=== PATIENT | male | born 1980 | race African-American/Black ===

== ENCOUNTER 2020-06-10 08:49 | Inpatient (IN) ==
--- NOTE | 2020-06-09 08:52 | Anesthesiology Consultation ---
Date of Service June 09, 2020 Assessment & Plan (1) Encounter for pre-operative examination: Patient is an inmate at [facility]. No current + cases at facility. Per wind turbine mechanic 06/06, [facility] staff report they will be COVID testing the patient AM DOS. Chart Review Chart Review: Acceptable Risk for Surgery and Patient NOT seen in Pre Admission Testing History Surgery Operation Date: 06/10/20 08:50 Proposed Procedures p Right Index Finger Hardware Removal, - Teja Church MD s Irrigation and Debridement - Teja Church MD Height/Weight Height: 6 ft 1 in Weight: 86.183 kg Allergies Allergy/AdvReac Type Severity Reaction Status Date / Time pollen extracts Allergy Verified 06/06/20 15:24 DUST Allergy Uncoded 06/06/20 15:24 Medications Home Medications Medication Instructions Recorded Confirmed Last Taken acetaminophen 1,000 mg PO BID 06/06/20 06/06/20 Unknown diphenhydramine HCl [Diphenedryl] 75 mg PO HS 06/06/20 06/06/20 Unknown fluoxetine 20 mg PO QAM 06/06/20 06/06/20 Unknown sulfamethoxazole-trimethoprim 1 tab PO BID 06/06/20 06/06/20 Unknown [Sulfatrim DS] Past Medical History Medical History Abnormal EKG Chronic prostatitis Depression Eye disorder Inmate in correctional facility Seasonal allergies Social History Smoking Status: Unknown if ever smoked Testing Laboratory Results 05/28/20 WBC: 7.36 H/H: 15.1/45.5 PLATELETS: 254
[~2020-06-10 08:49] MED LIST: CEFAZOLIN 2000MG 2,000 MG/15 ML SYR IV SCH; LACTATED RINGER'S 1,000 ML IV SCH; LR 15ML/HR IV SCH
[2020-06-10] MEDS ORDERED: LIDOCAINE HCL 2% 2 ML VIAL/AMP(20MG/ML) INFIL ONE (12:35)
[2020-06-10] MEDS ORDERED: ONDANSETRON INJ 2 MG/ML 2 ML VIAL ONE (12:35)
[2020-06-10] MEDS ORDERED: PROPOFOL IV EMULSION 10 MG/ML 20 ML VIAL IV ONE (12:35)
[2020-06-10] MEDS ORDERED: MIDAZOLAM HCL 1 MG/ML 2ML VIAL ONE (12:36)
[2020-06-10] MEDS ORDERED: fentaNYL citrate 100 MCG/2 ML VIAL ONE ×2 (12:36→15:25)
--- NOTE | 2020-06-10 13:01 | History & Physical Bridge Note ---
Date of Service June 10, 2020 History & Physical Bridge Note I have examined the patient, reviewed the History & Physical and in the interval since the performance of the History & Physical I have noted the following changes of clinical significance: no changes noted
[2020-06-10] MEDS ORDERED: VANCOMYCIN HCL 1000MG/20ML VIAL ONE (13:28)
[2020-06-10] MEDS ORDERED: GENTAMICIN SULFATE 40 MG/ML 2 ML VIAL ONE (13:28)
[2020-06-10] MEDS ORDERED: BACITRACIN INJ 50,000 UNIT VIAL ONE (13:29)
[2020-06-10] MEDS ORDERED: HYDROmorphone INJ 2 MG/ML SYR/VIAL IV PRN (13:43)
[2020-06-10] MEDS ORDERED: PROMETHAZINE HCL 12.5 MG in SODIUM CHLORIDE 0.9% 50 ML IV PRN (13:43)
[2020-06-10] MEDS ORDERED: ATROPINE SULFATE 0.1 MG/ML 10ML SYR IV PRN (13:43)
[2020-06-10] MEDS ORDERED: ePHEDrine sulfate 50 MG/ML AMP IV PRN (13:43)
[2020-06-10] MEDS ORDERED: ONDANSETRON INJ 2 MG/ML 2 ML VIAL IV PRN ×2 (13:43→17:29)
[2020-06-10] MEDS ORDERED: fentaNYL citrate 100 MCG/2 ML VIAL IV PRN (13:43)
[2020-06-10] MEDS ORDERED: METOCLOPRAMIDE HCL INJ 5 MG/ML 2 ML VIAL IV PRN ×2 (13:43→17:29)
[2020-06-10] MEDS: BUPIVACAINE 0.5 % 5 MG/1 ML MPF 30ML VIAL ONE ×2 (15:38→15:42)
[2020-06-10] MEDS: LIDOCAINE HCL 1% 20 ML VIAL ONE ×2 (15:38→15:42)
--- NOTE | 2020-06-10 15:39 | Operative Report ---
Post Operative Report Pre & Post Diagnosis Operation Date: 06/10/20 10:40 Pre-Op Diagnosis: Right Index Finger Infection with Loose Hardware Post-Op Diagnosis: Right Index Finger Infection with Loose Hardware I identified the patient and participated in the time-out.: Yes Procedure Operation Date: 06/10/20 10:40 Actual Procedures p Right Index Finger Hardware Removal; Application of Stimulan beads(Right) - MD vlad De León Irrigation and Debridement(Right) - Teja Church MD Surgeon Teja Church MD Care Director Soledad De La Garza Estimated Blood Loss 5 Findings Consistent with Post-Op Diagnosis Specimens Culture Drains None Anesthesia Type General Regional Complications none Disposition Accompanied Patient To Recovery: No Disposition: Recovery Room Indications Patient status post ORIF of right index finger. Open fracture. He has loosening of the screws pain and drainage and radiolucency consistent with a postoperative infection. Description of Procedure Informed consent obtained. Patient identified. He identified the operative site as the right index finger. I marked with my initials. A preoperative surgical timeout was performed and a preop dose of IV antibiotics was given. He was taken to the operating room positioned supine on the operating room table with the right arm on a hand table. DVT prophylaxis with foot pumps and early mobility. He had full extension and flexion about -2.5 cm from the distal palmar crease. There was a prominent callus secondary to protruding hardware but no active drainage on the dorsal aspect of the right index finger. Limb exsanguinated with gravity. Tourniquet inflated 225 mmHg. The prior oblique incision was opened down through the skin. Flaps were elevated medially and laterally in the prior suture line in the midline was identified and the extensor tendon was split longitudinally. Subperiosteal exposure of the digit and the hardware was performed. The dorsal hardware was removed through this incision. There was one screw which was volar and radial. This necessitated a mini Leon's zigzag incision on the palmar aspect of the hand. I bluntly dissected in the midline and identified the tendon sheath. I then identified the neurovascular bundle. The screw was localized dorsally and palpated palmarly. I went on the lateral side of the neurovascular bundle carefully dissected around the screw and removed it. This area was then at the end of the procedure irrigated and closed with 4-0 nylon interrupted sutures. Dorsally all of the screw holes were curettaged. A a culture was obtained. The ulnar distal 3 holes appeared to be enlarged the other ones were all normal. Some fibrinous exudate around this area was noted and debrided culture was obtained from those screw holes. Then irrigated with 3 L of pulsatile lavage. Stimulant beads with gentamicin and vancomycin were then placed into all of the dorsal holes. The tourniquet was let down after 60 minutes of inflation and meticulous hemostasis was performed. The extensor tendon was closed with buried interrupted 3-0 PDS suture. The skin was closed with 4-0 nylon. Local anesthetic 1% lidocaine and 0.5% Marcaine were injected for a digital block. The arm was cleaned with wet and dry sponges and a hand dressing was applied with a resting volar splint. Patient was awakened from anesthesia without difficulty taken to the recovery room in stable condition. Plate sent for specimen. Culture sent. Counts correct blood loss 5 cc. Plan is to admit to the hospital. Intravenous broad- spectrum antibiotics. Probable PICC line ID consult and follow-up on cultures. I attest to the content of the Intraoperative Record and any orders documented therein. Any exceptions are noted below.
--- NOTE | 2020-06-10 15:40 | Fluoroscopy Report ---
FL finger RT 2V (index finger) CLINICAL HISTORY: RIGHT FINGER HARDWARE REMOVAL COMPARISON STUDY: 06/06/2020 FLUOROSCOPY TIME: 3 seconds. NUMBER OF FLUOROSCOPIC IMAGES: 1 FINDINGS: A single fluoroscopic spot image of the right index finger is provided for interpretation. There are multiple lucencies within the proximal phalanx, consistent with screw tracks from prior shanel dware. No residual metallic hardware is visualized. IMPRESSION: Fluoroscopic spot image demonstrating interval removal of the hardware involving the pro ximal phalanx of the index finger ACT 112: Negative or not required by law. Electronically signed by: Joseph Gee M.D. 06/10/2020 3:39 PM
--- NOTE | 2020-06-10 15:59 | Operative Report ---
Post Operative Report Pre & Post Diagnosis Operation Date: 06/10/20 10:40 Pre-Op Diagnosis: Right Index Finger Infection with Loose Hardware Post-Op Diagnosis: Right Index Finger Infection with Loose Hardware I identified the patient and participated in the time-out.: Yes Procedure Operation Date: 06/10/20 10:40 Actual Procedures p Right Index Finger Hardware Removal; Application of Stimulan beads(Right) - Teja Church MD s Irrigation and Debridement(Right) - Teja Church MD Surgeon Teja Church M.D. Parts Room Associate Soledad De La Garza PA-C, no fellow available Estimated Blood Loss 5 Findings Consistent with Post-Op Diagnosis Specimens hardware, wound cultures Drains None Anesthesia Type General Complications none Description of Procedure Patient was taken to the operating room, placed under general anesthesia, given 2 gm IV ancef for surgical prophylaxis. Time out performed, prepped and draped in routine sterile fashion. I as present during the entire case, please see Dr. Church's operative report for further detail. I assisted with positioning, tissue retraction, removal of hardware, wound closure and dressings/splinting. Patient was awakened and taken to the recovery room in stable condition. I attest to the content of the Intraoperative Record and any orders documented therein. Any exceptions are noted below.
--- NOTE | 2020-06-10 17:08 | Anesthesiology Progress Note ---
Date of Service June 10, 2020 Anesthesia Post Procedure Vital Signs Vital Signs: Temp Pulse Pulse Resp BP Pulse Ox 06/10/20 17:00 71 17 136/94 100 06/10/20 16:50 72 17 134/96 100 06/10/20 16:40 36.6 C 70 23 136/96 100 06/10/20 16:30 69 14 114/68 98 06/10/20 16:20 65 13 114/84 98 06/10/20 16:10 67 13 113/75 94 06/10/20 16:04 36.5 C 75 21 125/80 84 L 06/10/20 10:00 63 20 132/93 95 06/10/20 09:21 36.8 C 63 20 132/93 94 Pain Intensity Right Finger: Pain Intensity: 2 Transfer of Care Handoff Completed per policy Notes Mental Status: alert / awake / arousable Patient Amnestic to Procedure: Yes Nausea / Vomiting: adequately controlled Pain: adequately controlled Airway Patency, RR, SpO2: stable & adequate BP & HR: stable & adequate Hydration State: stable & adequate Anesthetic Complications: no major complications apparent
[2020-06-10] MEDS ORDERED: bisacodyL 10 MG SUPP PR PRN (17:29)
[2020-06-10] MEDS ORDERED: NALOXONE HCL 0.4 MG/1 ML VIAL/CARP IV PRN (17:29)
[2020-06-10] MEDS ORDERED: TAMSULOSIN HCL 0.4 MG CAP PO PRN (17:29)
[2020-06-10] MEDS ORDERED: MAGNESIUM HYDROXIDE SUSP 30 ML UDC PO PRN (17:29)
[2020-06-10] MEDS ORDERED: HYDROmorphone INJ 0.5 MG/0.5 ML SYR IV PRN (17:29)
[2020-06-10] MEDS ORDERED: PIPERACILL/TAZOBAC CONSULT ACTIVE PRN (17:29)
[2020-06-10] MEDS ORDERED: DiphenhydrAMINE HCL 50 MG/ML VIAL IV PRN (17:29)
[2020-06-10] MEDS ORDERED: TRAMADOL HCL 50 MG TABLET PO PRN (17:29)
[2020-06-10] MEDS ORDERED: VANCOMYCIN CONSULT ACTIVE PRN (17:29)
[2020-06-10 18:27] LABS: Creatinine Clr Calc Pharmacy 140.5 ml/min; Est GFR (African American) 127.2; Est GFR (Non-African American) 109.7
[2020-06-10] MEDS ORDERED: PIPERACILLIN/TAZOBACTAM 3.375 GM in DEXTROSE 5% 100 ML IV ONE (18:30)
[2020-06-10] MEDS ORDERED: VANCOMYCIN HCL 2,250 MG in SODIUM CHLORIDE 0.9% 500 ML IV ONE (19:00)
[2020-06-10] MEDS: SODIUM CHLORIDE 0.9% 1000ML 1,000 ML IV SCH (19:02)
[2020-06-10] MEDS: OXYCODONE HCL IR 5 MG TAB (IMMEDIATE RELEASE) PO PRN (19:03)
--- NOTE | 2020-06-10 19:31 | Progress Notes ---
DATE: 06/10/2020 Doing well postop, pain is well controlled. Afebrile. Vital signs stable. Results of surgery were discussed. Plan for probable PICC line tomorrow. ID consult. Continue IV antibiotics. Dressing is clean and dry and the patient can wiggle the tip of his finger. He has capillary refill less than 2 seconds and intact sensation.
[2020-06-10] MEDS: DOCUSATE SODIUM 100 MG CAP PO SCH (20:43)
[2020-06-10] MEDS: SENNA 8.6 MG TAB PO SCH (20:43)
[2020-06-10] MEDS: ACETAMINOPHEN 500 MG TAB PO SCH (20:44)
[2020-06-11] MEDS: PIPERACILLIN/TAZOBACTAM 3.375 GM in DEXTROSE 5% 100 ML IV SCH ×2 (00:06→08:15)
[2020-06-11] MEDS: OXYCODONE HCL IR 5 MG TAB (IMMEDIATE RELEASE) PO PRN (01:25)
[2020-06-11] MEDS: VANCOMYCIN HCL 1,250 MG in SODIUM CHLORIDE 0.9% 250 ML IV SCH ×3 (03:29→20:12)
[2020-06-11] MEDS: SODIUM CHLORIDE 0.9% 1000ML 1,000 ML IV SCH (03:29)
[2020-06-11] MEDS: ACETAMINOPHEN 500 MG TAB PO SCH ×3 (05:50→21:04)
[2020-06-11 06:15] LABS: Creatinine Clr Calc Pharmacy 126.1 ml/min; Est GFR (African American) 113.7; Est GFR (Non-African American) 98.1
--- NOTE | 2020-06-11 07:59 | Anesthesiology Progress Note ---
Date of Service June 11, 2020 Anesthesia Post Procedure Vital Signs Vital Signs: Temp Pulse Pulse Pulse Resp BP Pulse Ox 06/11/20 03:33 36.6 C 63 20 138/85 96 06/10/20 23:55 36.5 C 63 22 138/87 97 06/10/20 20:29 36.4 C L 66 16 117/71 94 06/10/20 19:31 36.7 C 76 16 127/88 97 06/10/20 18:26 36.8 C 74 16 125/85 98 06/10/20 17:50 37.1 C 64 16 126/90 94 06/10/20 17:00 71 17 136/94 100 06/10/20 16:50 72 17 134/96 100 06/10/20 16:40 36.6 C 70 23 136/96 100 06/10/20 16:30 69 14 114/68 98 06/10/20 16:20 65 13 114/84 98 06/10/20 16:10 67 13 113/75 94 06/10/20 16:04 36.5 C 75 21 125/80 84 L 06/10/20 10:00 63 20 132/93 95 06/10/20 09:21 36.8 C 63 20 132/93 94 Pain Intensity Right Finger: Pain Intensity: 2 Notes Mental Status: alert / awake / arousable Patient Amnestic to Procedure: Yes Nausea / Vomiting: adequately controlled Pain: adequately controlled Airway Patency, RR, SpO2: stable & adequate BP & HR: stable & adequate Hydration State: stable & adequate Anesthetic Complications: no major complications apparent and Pt Satisfied with anesthetic care
[2020-06-11] MEDS: FLUOXETINE HCL 20 MG CAP PO SCH (08:20)
[2020-06-11] MEDS: DOCUSATE SODIUM 100 MG CAP PO SCH ×2 (08:20→20:13)
[2020-06-11] MEDS: MULTIVITAMIN TAB PO SCH (08:20)
--- NOTE | 2020-06-11 10:18 | Orthopedic Progress Note ---
Date of Service June 11, 2020 Assessment & Plan (1) Deep postoperative wound infection: POD 1- s/p hardware removal, I & D right index finger for fracture may be out of bed as tolerated Keep splint on right hand at all times Keep ice and elevation right hand as needed for swelling. Regular diet as ordered NWB Right hand Will continue to follow cultures; ID consult pending. Continue Vanco and Zosyn for now PICC line consent obtained, will place today. Dr. Church present for today's visit and exam Will re-eval in AM. All questions answered. Present on Admission?: Yes Admission and Anticipated Discharge Date Admission Date: June 10, 2020 Subjective doing well. No complaints of pain right hand. Splint intact. Ice in place. Hand elevated Physical Exam Physical Exam: Right hand elevated, splint in place. Ice on left hand. Distal N/V intact. No edema right upper extremity Results & Data ([facility]) Vital Signs (Past 12 Hours) Vital Signs Temp Pulse Resp BP Pulse Ox 06/11/20 08:04 36.5 C 62 16 107/70 96 06/11/20 03:33 36.6 C 63 20 138/85 96 06/10/20 23:55 36.5 C 63 22 138/87 97 Laboratory Results 06/11/20 06/10/20 06/10/20 Range/Units 05:22 17:58 16:45 Creatinine 0.98 0.88 (0.6-1.4) mg/dl Est Cr Clr Drug Dosing 126.1 140.5 ml/min Est GFR ( Amer) 113.7 127.2 Est GFR (Non-Af Amer) 98.1 109.7 Nasal Screen MRSA (PCR) Negative (Negative) Microbiology 06/10/20 15:04 Gram Stain - Final Finger,Right Index Micro - no organisms seen on gram stain; cultures pending
[2020-06-11] MEDS: SENNA 8.6 MG TAB PO SCH (20:13)
[2020-06-11] MEDS ORDERED: COUGH DROP (SUGAR FREE) LOZ 24 LOZ/1 BOX BUCCAL ONE (22:46)
[2020-06-12] MEDS ORDERED: VANCOMYCIN TROUGH ONE (03:30)
[2020-06-12] MEDS: VANCOMYCIN HCL 1,250 MG in SODIUM CHLORIDE 0.9% 250 ML IV SCH (03:41)
[2020-06-12 04:07] LABS: Creatinine Clr Calc Pharmacy 142.1 ml/min; Est GFR (African American) 127.8; Est GFR (Non-African American) 110.3
[2020-06-12] MEDS: ACETAMINOPHEN 500 MG TAB PO SCH ×3 (05:51→22:09)
[2020-06-12] MEDS: DOCUSATE SODIUM 100 MG CAP PO SCH (08:11)
[2020-06-12] MEDS: MULTIVITAMIN TAB PO SCH (08:12)
[2020-06-12] MEDS: FLUOXETINE HCL 20 MG CAP PO SCH (08:12)
--- NOTE | 2020-06-12 09:07 | Pharmacy Report ---
Pharmacy Abx Dose Short Note - Date of Service June 12, 2020 - Assessment & Plan Assessment 39 year old M receiving vancomycin for treatment of osteomyelitis Day # 3 of antimicrobial therapy. Plan Vancomycin * Trough level of 12.6 mcg/mL is subtherapeutic. * Change to 1500 mg IV every 8 hours (start 2 hours early as trough is subtherapeutic) * Goal trough level for osteomyelitis : 15 to 20 mcg/mL * Trough ordered for: 06/13/20 prior to 1000 dose. Pharmacy will continue to follow and will adjust dose/frequency as necessary. Thank you.
[2020-06-12] MEDS: VANCOMYCIN HCL 1,500 MG in SODIUM CHLORIDE 0.9% 500 ML IV SCH ×2 (10:36→18:08)
--- NOTE | 2020-06-12 13:34 | Orthopedic Progress Note ---
Date of Service June 12, 2020 Assessment & Plan (1) Deep postoperative wound infection: POD 2- s/p hardware removal, I & D right index finger for fracture may be out of bed as tolerated Keep splint on right hand at all times Keep ice and elevation right hand as needed for swelling. Regular diet as ordered NWB Right hand Will continue to follow cultures; ID consult pending. Continue Vanco and will plan for 6 weeks of IV abx. Cutlures currently pending. PICC line in place, functioning. Dr. Church present for today's visit and exam Will re-eval in AM. Will continue to follow cultures as inpatient and plan for possible discharge tomorrow. All questions answered today. Admission and Anticipated Discharge Date Admission Date: June 10, 2020 Subjective Right hand with splint in place. Denies pain, state pain controlled with tylenol. Physical Exam Physical Exam: Exam: right hand splint and dressings removed. Incisions clean, dry, intact. Normal sensation fingers right hand. Distal pulses 1+, minimal edema right hand. Tolerates wrist ROM and forearm rotation. Cap refill brisk, fingers warm Results & Data ([facility]) Vital Signs (Past 12 Hours) Vital Signs Temp Pulse Resp BP Pulse Ox 06/12/20 08:17 71 107/65 06/12/20 07:17 36.9 C 78 16 143/67 H 95 Laboratory Results Microbiology 06/10/20 15:04 Gram Stain - Final Finger,Right Index Aerobic and Anaerobic Culture - Preliminary No growth to date. 06/12/20 06/12/20 Range/Units 03:25 03:25 Creatinine 0.87 (0.6-1.4) mg/dl Est Cr Clr Drug Dosing 142.1 ml/min Est GFR ( Amer) 127.8 Est GFR (Non-Af Amer) 110.3 Vancomycin Trough 12.6 (See Comment) mcg/ml
[2020-06-12] MEDS: LACTOBACILLUS ACIDOPHILUS (FLORANEX) TAB PO SCH ×2 (15:43→22:09)
[2020-06-13] MEDS: VANCOMYCIN HCL 1,500 MG in SODIUM CHLORIDE 0.9% 500 ML IV SCH ×2 (02:22→09:40)
[2020-06-13] MEDS: ACETAMINOPHEN 500 MG TAB PO SCH ×2 (05:02→13:02)
[2020-06-13] MEDS: MULTIVITAMIN TAB PO SCH (08:14)
[2020-06-13] MEDS: FLUOXETINE HCL 20 MG CAP PO SCH (08:15)
[2020-06-13] MEDS: LACTOBACILLUS ACIDOPHILUS (FLORANEX) TAB PO SCH ×3 (08:15→18:21)
[2020-06-13] MEDS ORDERED: VANCOMYCIN TROUGH ONE (09:30)
[2020-06-13 10:18] LABS: Creatinine Clr Calc Pharmacy 148.9 ml/min; Est GFR (African American) 130.3; Est GFR (Non-African American) 112.4
--- NOTE | 2020-06-13 12:05 | Pharmacy Report ---
Pharmacy Abx Dose Short Note - Date of Service June 13, 2020 - Assessment & Plan Assessment 39 year old M receiving vancomycin for treatment of osteomyelitis Day # 4 of antimicrobial therapy. Plan Vancomycin * Trough level of 12.6 mcg/mL is subtherapeutic. * Change to 1750 mg IV every 8 hours (start 2 hours early due to subtherapeutic trough) * Goal trough level for osteomyelitis : 15 to 20 mcg/mL * Trough ordered for: 06/14/20 Pharmacy will continue to follow and will adjust dose/frequency as necessary. Thank you.
--- NOTE | 2020-06-13 15:43 | Orthopedic Progress Note ---
Date of Service June 13, 2020 Assessment & Plan (1) Deep postoperative wound infection: POD 3- s/p hardware removal, I & D right index finger for fracture may be out of bed as tolerated Keep splint on right hand at all times Keep ice and elevation right hand as needed for swelling. Regular diet as ordered NWB Right hand Will continue to follow cultures; ID consult pending. Continue Vanco and will plan for 6 weeks of IV abx. Cultures pending but no growth to date. PICC line in place, functioning. Dr. Church present for today's visit and exam [facility] has Vancomycin. Will plan for discharge today. Discharge instructions provided. Admission and Anticipated Discharge Date Admission Date: June 10, 2020 Subjective Right hand with splint in place. Denies pain, state pain controlled with tylenol. [place] itchy today, benadryl helped. Physical Exam Physical Exam: Right hand dressing changed, no edema, distal sensation normal. No active drainage, incision clean and dry. Sutures retained. Splint reapplied. Results & Data ([facility]) Vital Signs (Past 12 Hours) Vital Signs Temp Pulse Resp BP Pulse Ox 06/13/20 08:03 37.0 C 62 18 113/66 98 Laboratory Results 06/13/20 06/13/20 Range/Units 09:27 09:27 Creatinine 0.83 (0.6-1.4) mg/dl Est Cr Clr Drug Dosing 148.9 ml/min Est GFR ( Amer) 130.3 Est GFR (Non-Af Amer) 112.4 Vancomycin Trough 12.6 (See Comment) mcg/ml Micro - no growth to date
[2020-06-13] MEDS ORDERED: VANCOMYCIN HCL 1,750 MG in SODIUM CHLORIDE 0.9% 500 ML IV SCH (16:00)
--- NOTE | 2020-06-13 16:05 | Discharge Summary ---
Date of Service June 13, 2020 Discharge Data Consultations 06/10/20 17:29 Consult Case Management - Discharge Planning Routine Consult Infectious Diseases Routine Procedures Performed Operation Date: 06/10/20 10:40 Actual Procedures p Right Index Finger Hardware Removal; (Right) - Teja Church MD s Irrigation and Debridement; Application of Stimulan beads(Right) - Teja Church MD Hospital Course (1) Deep postoperative wound infection: Patient was admitted to [facility] on June 10, 2020 after undergoing heart removal of his right index finger and I&D. Intraoperative cultures were taken at that time. He was given IV Ancef prior to his procedure. His surgery was performed with general anesthesia. He tolerated the procedure well without any intraoperative complications. Postoperatively he was started on vancomycin and Zosyn for broad-spectrum coverage. Intraoperative cultures have been followed during his inpatient stay. They currently are no growth to date. An infectious disease consult was obtained and per their recommendations the Zosyn was discontinued. The IV vancomycin was continued with a Vanco trough between 15-20. Pharmacy was consulted and managed his vancomycin dosage. He was allowed out of bed, activities as tolerated, weightbearing as tolerated lower extremities. He should be nonweightbearing of his right upper extremity. He was given a regular diet and tolerated that well during his inpatient stay. Recommended to ice and elevate his right hand as needed. Avoid any use of that right hand or pushing with the right hand. He had a splint on that was placed intraoperatively and he was advised to keep that on at all times. Keep it clean and dry. Dressings were changed on postoperative day 2 and his incisions were clean dry and intact. New dressings and a splint was reapplied. On postoperative day 3 he complained of some itching all over his body which was improved with Benadryl. We again changed his dressings to make his splint more comfortable for possible discharge. His pain was well controlled during his inpatient stay. He did not require more than 2 doses of oxycodone. He was on scheduled Tylenol. He did develop some diarrhea on postoperative day 2 so his Colace and Senokot were discontinued. He was also placed on a lactobacillus probiotic. On postoperative day 3 his stools were more formed and much more controlled. On postoperative day 1 a PICC line was placed in his left upper extremity. Informed consent was obtained by Dr. Church prior to the PEG being placed. Appreciate infectious disease and pharmacy assistance during his inpatient stay. It was determined that he was safe for discharge to [facility] on June 13, 2020. We will perform a weekly CBC, CMP and Vanco trough. This will be performed while he is on vancomycin. Plan is for IV antibiotics x6 weeks. We will maintain the Vanco trough between 15 and 20. Postoperative course was discussed. Discharge instructions were also discussed. Recommended to keep everything clean and dry. Recommended follow-up with Dr. Church in 10 to 14 days for suture removal. He was discharged to [facility] on June 13, [address] [facility] has Vancomycin. Discharge Instructions as per EMR
[2020-06-14] MEDS ORDERED: VANCOMYCIN TROUGH ONE (07:30)
== END 2020-06-13 20:30 | DRG 858 ==
LOC: ASU 08:49 → 3E 16:04